=== PATIENT | male | born 1955 | race Caucasian/White ===

== ENCOUNTER 2018-02-27 12:04 | Emergency (ER) | payer MEDICARE, OTHER ==
[~2018-02-27] VITALS: Ht 167.6 cm; Wt 83.7 kg
[~2018-02-27 12:04] MED LIST: AMLO5TAB2 PO; CAND4TAB PO; CLOP75TA PO; EMPA1TAB3 PO; EXENINJ SQ; LANTUS2P SQ; METF1000 PO; PRAV40TA2 PO; SERT-132 PO; TOPR25TA PO
[2018-02-27 12:07] VITALS: BP 148/67; PULSE 74; RESP 18; TEMP 98.2; O2SAT 95
[2018-02-27] MEDS ORDERED: LIPI40TA PO (13:16)
[2018-02-27] MEDS ORDERED: ACYC800T PO (13:28)
--- NOTE | 2018-02-27 13:28 | PD ---
HPI Chief Complaint: Headache Time Seen by Provider: 13:24 Travel History International Travel<30 days: No Contact w/Intl Traveler<30days: No Traveled to known affect area: No History of Present Illness HPI 63-year-old male patient with history of diabetes, presents to the ER today because he has had 3-5 days history of right scalp pains that started on his own. He states is about a 5 out of 10. His noted that there were some spots or vesicles that she saw on the area. He denies any injuries, any other headaches, fevers, stiff neck, nausea, vomiting, visual changes, or any other issues. He denies any focal neurological deficits. He denies this ever happening in the past. He states that the pain is intermittent and burning. Modifying Factors: None Associated Signs & Symptoms: Right scalp pain Risk Factors: None PFSH Past Medical History Hx Anticoagulant Therapy: Yes (CRESTOR) Arthritis: Yes Blood Disorders: No Cancer: No Cardiovascular Problems: Yes (HTN) High Cholesterol: Yes Cerebrovascular Accident: Yes Diabetes: Yes (TYPE 2) Patient Takes Glucophage: Yes Diminished Hearing: No Endocrine: Yes Genitourinary: No Hypertension: Yes Immune Disorder: No Musculoskeletal: Yes Neurologic: Yes Psychiatric: No Reproductive: No Respiratory: Yes Sleep Apnea: Yes Tetanus Vaccination: > 5 Years Influenza Vaccination: No Past Surgical History Cholecystectomy: Yes Joint Replacement: Yes (LEFT KNEE) Other Surgery: Yes (LEFT SHOULDER, C4-5 FUSION) Social History Alcohol Use: No (FORMER QUIT 1985) Tobacco Use: No (QUIT AT 38Y/O) Substance Use: No Allergies-Medications (Allergen,Severity, Reaction): Coded Allergies: No Known Allergies (Verified Adverse Reaction, Unknown, 02/27/18) Reported Meds & Prescriptions Reported Meds & Active Scripts Active Candesartan (Candesartan Cilexetil) 4 Mg Tab 4 Mg PO DAILY Clopidogrel (Clopidogrel Bisulfate) 75 Mg Tab 75 Mg PO DAILY Amlodipine (Amlodipine Besylate) 5 Mg Tab 5 Mg PO DAILY Jardiance (Empagliflozin) 25 Mg Tab 25 Mg PO DAILY Reported Lipitor (Atorvastatin Calcium) 40 Mg Tab 40 Mg PO HS Bydureon Inj (Exenatide) 2 Mg Vial 2 Mg SQ Q7D Lantus Inj (Insulin Glargine) 1,000 Unit/10 Ml Vial 50 Units SQ HS Toprol XL (Metoprolol Succinate) 25 Mg Tab 25 Mg PO DAILY Sertraline (Sertraline HCl) 50 Mg Tab 50 Mg PO DAILY Metformin (Metformin HCl) 1,000 Mg Tab 1,000 Mg PO BIDPC With meals Review of Systems Except as stated in HPI: all other systems reviewed are Neg Physical Exam Narrative GENERAL: Well-developed elderly male patient currently and no acute distress. Awake and oriented 3. SKIN: Focused skin assessment warm/dry. HEAD: Atraumatic. Normocephalic. There is mild tenderness to palpation of the area which expands around 4 x 5 cm on the right scalp, does not cross midline. I may see one spot that could be a vesicle but I do not see any obvious rashes or any significant erythema or fluctuance or underlying induration. EYES: Pupils equal and round. No scleral icterus. No injection or drainage. ENT: No nasal bleeding or discharge. Mucous membranes pink and moist. NECK: Trachea midline. No JVD. Supple CARDIOVASCULAR: Regular rate and rhythm. No murmur appreciated. RESPIRATORY: No accessory muscle use. Clear to auscultation. Breath sounds equal bilaterally. GASTROINTESTINAL: Abdomen soft, non-tender, nondistended. Hepatic and splenic margins not palpable. MUSCULOSKELETAL: No obvious deformities. No clubbing. No cyanosis. No edema. NEUROLOGICAL: Awake and alert. No obvious cranial nerve deficits. Motor grossly within normal limits. Normal speech. PSYCHIATRIC: Appropriate mood and affect; insight and judgment normal. Data Data Last Documented VS Vital Signs Date Time Temp Pulse Resp B/P (MAP) Pulse Ox O2 Delivery O2 Flow Rate FiO2 02/27/18 13:11 Room Air 02/27/18 12:07 98.2 74 18 148/67 (94) 95 MDM Medical Decision Making Medical Screen Exam Complete: Yes Emergency Medical Condition: Yes Medical Record Reviewed: Yes Differential Diagnosis Scalp cellulitis versus herpes zoster Narrative Course I do not see any signs of obvious infections or cellulitis there. At this point , considering the type of pain, this could be early zoster. My plan would be to treat him for this and have him follow-up with his primary care physician who is seeing on Thursday. Return for any worsening in symptoms as necessary. The plan has been discussed with him he states understanding. Over-the- counter pain relief with Tylenol as necessary. Diagnosis Primary Impression: Scalp pain Med/Other Pt SpecificInfo: Prescription(s) given Scripts Acyclovir (Acyclovir) 800 Mg Tab 800 MG PO 5 TIMES A DAY for Mgmt Viral Infection for 7 Days, TAB 0 Refills Prov: Ashley Calero MD 02/27/18 Disposition: 01 DISCHARGE HOME Condition: Stable Ashley Calreo MD Feb 27, 2018 13:28
== END 2018-02-27 13:54 | disposition home or self-care (01) ==
LOC: PHED 12:04
DX: R51 Headache (principal); E11.9 Type 2 diabetes mellitus without complications; E78.00 Pure hypercholesterolemia, unspecified; I10 Essential (primary) hypertension; Z86.73 Personal history of transient ischemic attack (TIA), and cerebral infarction without residual deficits; Z87.891 Personal history of nicotine dependence
CPT/HCPCS: 99283